=== PATIENT | female | born 1945 | race Caucasian/White ===

== ENCOUNTER 2018-06-03 02:10 | Emergency (ER) | payer MEDICARE, OTHER ==
[~2018-06-03] VITALS: Ht 160 cm; Wt 67.1 kg
--- NOTE | 2018-06-03 02:25 | NUR ---
Pt came to emergency dept. complaining of ground level fall after getting out of wheelchair. Pt has hematoma on R eyebrow/ laceration. Pt AXO4. Respiration even and unlabored. Pt denies KO. Pt put on the switchboard clerk and pulse ox.
--- NOTE | 2018-06-03 03:06 | NUR ---
EFRAÍN JAEGER AT BEDSIDE FOR SUTURING.
--- NOTE | 2018-06-03 03:25 | NUR ---
PT TAKEN TO CT.
--- NOTE | 2018-06-03 03:36 | NUR ---
PT RETURNED FROM CT.
--- NOTE | 2018-06-03 04:35 | NUR ---
CALLED KRISTOPHER FOR REPORT
--- NOTE | 2018-06-03 04:51 | NUR ---
Patient discharged to home in stable condition. Written and verbal after care instructions given. Patient verbalizes understanding of instruction.
[2018-06-03 04:53] VITALS: BP 163/72
== END 2018-06-03 04:53 | disposition home or self-care (01) ==
LOC: ER 02:17
DX: S01.111A Laceration without foreign body of right eyelid and periocular area, initial encounter (principal); S09.8XXA Other specified injuries of head, initial encounter; R51 Headache; Z95.5 Presence of coronary angioplasty implant and graft; Z99.2 Dependence on renal dialysis; W18.09XA Striking against other object with subsequent fall, initial encounter; Y93.89 Activity, other specified; Y92.89 Other specified places as the place of occurrence of the external cause; Y99.8 Other external cause status
CPT/HCPCS: 12011; 70450; 70486; 99284; A6403